=== PATIENT | female | born 1970 | race Caucasian/White ===

== ENCOUNTER 2021-01-09 09:14 | Emergency (ER) | payer MEDICARE, SELFPAY ==
[2021-01-09 09:22] VITALS: BP 120/84; PULSE 76; TEMP 36.8; O2SAT 97
--- NOTE | 2021-01-09 09:23 | ED.GENADUL_ITS ---
Discharge Plan Disposition Patient Disposition: HOME Condition: Improving Discharge Details Clinical Impression: Contusion of right shoulder Primary Care Provider: Missy Lozada V ED Provider: Archana Lopez Home Meds and New Rx's Prescriptions: No Action No Known Home Meds RF: 0 Discharge Instructions Instructions: Contusion in Adults (ED) Additional Instructions: Rest, ice, and elevate the affected area as much as possible. Alternate tylenol and motrin as needed and directed for pain. Follow up with your primary care doctor in 1 week as needed and for consid eration for referral to orthopedics if your symptoms do not improve or worsen. Return to the emergency department with any worsening or new concerning symptoms. Referrals: Srinivasan Collins MD [ [facility] STAFF PHYSICIAN] - Discharge Data Discharge Physician: Archana Lopez Medical Decision Making 50-year-old female presents with right shoulder pain after slip and fall hitting her right shoulder on a metal door last night. Vitals within normal limits. She has reproducible pain with palpation and movement. No tenderness to palpation of cervical spine or remainder of right upper extremity. Neurovascularly intact. Will refer for x-rays and give a dose of ibuprofen and Lidoderm patch and reassess. X-ray reviewed and negative. Patient reassessed and her pain improved. Discussed that her symptoms are most likely consistent with contusion and history and presentation does not appear consistent with rotator cuff injury. Advised to rest, ice and rest on the pillow as much as possible. She was offered a sling but declined. Advised on the importance of gentle range of motion to prevent adhesive capsulitis. Advised to follow up with the primary care doctor for re-evaluation as needed. Usual and customary return precautions given prior to discharge. Medical Records Medical records reviewed: Yes I reviewed the patient's medical records. Imaging Data Radiologic Study: Radiologist's impression: XR Right Shoulder Exam date and time: 01/09/2021 9:38 AM Age: 50 years old Clinical indication: Pain; Shoulder; Right TECHNIQUE: Imaging protocol: XR Right shoulder. Views: 2 or more views. COMPARISON: No relevant prior studies available. FINDINGS: Bones/joints: Degenerative changes in the acromioclavicular joint and glenohumeral joint. There is no evidence of acute fracture.There is no evidence of malalignment or dislocation. Soft tissues: Normal. IMPRESSION: There is no evidence of acute fracture.There is no evidence of malalignment or dislocation. HPI General Mode of arrival: ambulatory . Date/Time Provider Initiated Documentation: 01/09/21 09:23 . Limitations to Documentation: no limitations . Information obtained by: patient . HPI Narrative: Patient is a 50-year-old female who presents with right shoulder pain after slipping and falling while mo ving a propane tank yesterday on her porch and striking her right shoulder on a metal door. She states she is having limited range of motion in her right shoulder due to pain. She states she did have some radiation of pain to her right neck but states this is now resolved. She took 2 tabs of ibuprofen and Tylenol last night without relief. She has not taken any medication for pain this morning. She states she cannot take narcotics due to nausea. She denies head injury, LOC, chest pain, difficulty breathing, abdominal pain, back pain, left arm or bilateral lower extremity pain. Related Data Home Medications Medication Instructions Recorded Confirmed Unknown [No Known Home Meds] 01/09/21 01/09/21 Allergies Allergy/AdvReac Type Severity Reaction Status Date / Time No Known Allergies Allergy Unverified 01/09/21 09:31 Review of Systems All systems reviewed & are unremarkable except as noted in HPI and below Constitutional Constitutional: Reports as per HPI, Denies chills and Denies fever(s) Eyes Eyes: Denies blurry vision ENT Ears, Nose, Mouth, and Throat: Denies dizziness, Denies sore throat and Denies throat swelling Cardiovascular Cardiovascular: Denies chest pain and Denies dyspnea Respiratory Respiratory: Denies cough and Denies dyspnea Gastrointestinal Gastrointestinal: Denies abdominal pain, Denies diarrhea and Denies vomiting Genitourinary Genitourinary: Denies hematuria and Denies dysuria Musculoskeletal Musculoskeletal: Denies back pain and Denies numbness Integumentary/Breasts Skin/Breast: Denies lesions and Denies rash Neurologic Neurologic: Denies dizziness, Denies localized weakness and Denies numbness Allergic/Immunologic Allergic/Immunologic: Denies throat swelling [facility] Medical History (Updated 01/09/21 @ 10:50 by Archana Lopez DO) No significant past medical history Surgical History (Updated 01/09/21 @ 09:40 by Archana Lopez DO) History of hysterectomy Social History Smoking/Tobacco Use Status: Current every day Tobacco Type: cigarettes Smoking risk assessment performed?: Yes Alcohol Intake: current Alcohol Intake frequency: holidays/special occasions only Drug use: Socially Substance use type: marijuana Do you feel safe at home: Yes Do you feel safe in your relationship?: Yes Exam Const General: cooperative, healthy appearing and no acute distress [facility] Head: normal to inspection Ears: hearing grossly normal bilaterally and external ears normal Mouth: oral mucosae normal Eyes General: appearance normal, both eyes and all related structures Neck Neck: normal visual inspection Resp Effort & Inspection: normal respiratory effort and able to speak in complete sentences Cardio Rate: regular rate Skin General skin exam: no rashes or lesions noted Neuro General: patient alert, patient awake and patient oriented x3 Motor: muscle tone normal throughout Extrem General: normal to inspection and capillary refill normal Other: Tenderness to palpation to right anterior and lateral shoulder. Pain in right shoulder with range of motion. Limited range of motion due to pain. No tenderness patient right clavicle, upper arm, elbow, forearm, wrist or hand. Right radial and ulnar pulses intact. No crepitus. No deformity. Psych Appearance: grossly normal Affect: normal affect
--- NOTE | 2021-01-09 09:30 | DI.RAD_ITS ---
Exam(s) XR SHOULDER RT COMPLETE 2+V EXAM: XR SHOULDER RT COMPLETE 2+V CLINICAL HISTORY: r/o fx. fall. TECHNIQUE: 2D digital imaging was performed. COMPARISON: CR RIGHT SHOULDER COMPLETE from 06/23/2011 FINDINGS: BONES: No acute fracture is present. No bony destructive lesion is seen. JOINTS: No dislocation present. Mild spurring AC joint and undersurface of the acromion. Mild spurr ing at the glenoid. SOFT TISSUE: Normal. IMPRESSION: Mild degenerative changes. No acute abnormality. DATA REPOSITORY: RADIATION DOSE DELIVERED:
[2021-01-09] MEDS: Ibuprofen 600 MG TAB PO (09:43)
[2021-01-09] MEDS: Lidocaine 5% Patch 1 PATCH TP (09:44)
--- NOTE | 2021-01-09 10:33 | DI.VRAD_ITS ---
PROCEDURE INFORMATION: Exam: XR Right Shoulder Exam date and time: 01/09/2021 9:38 AM Age: 50 years old Clinical indication: Pain; Shoulder; Right TECHNIQUE: Imaging protocol: XR Right shoulder. Views: 2 or more views. COMPARISON: No relevant prior studies available. FINDINGS: Bones/joints: Degenerative changes in the acromioclavicular joint and glenohumeral joint. There is no evidence of acute fracture.There is no evidence of malalignment or dislocation. Soft tissues: Normal. IMPRESSION: There is no evidence of acute fracture.There is no evidence of malalignment or dislocation. Dictated and Authenticated by: Bushra Mancera MD. Ordering:STARLA Magaña MD
== END 2021-01-09 11:06 | disposition home or self-care (01) ==
PROVIDERS: Emergency Provider Physician Assistant; PCP Family Medicine
DX: S40.011A Contusion of right shoulder, initial encounter (principal); W01.0XXA Fall on same level from slipping, tripping and stumbling without subsequent striking against object, initial encounter
CPT/HCPCS: 99283; 73030